=== PATIENT | male | born 1995 | race Caucasian/White ===

== ENCOUNTER 2017-03-06 00:26 | Emergency (ER) | payer SELFPAY ==
[~2017-03-06] VITALS: Ht 182.9 cm; Wt 79.5 kg
[2017-03-06] MEDS ORDERED: DiphenhydrAMINE HCL 25 MG CAPSULE PO ONE (02:00)
[2017-03-06] MEDS ORDERED: PredniSONE 20 MG TABLET PO ONE (02:00)
[2017-03-06 02:14] VITALS: BP 132/78
== END 2017-03-06 02:14 | disposition home or self-care (01) ==
LOC: EMS 00:31
DX: L23.9 Allergic contact dermatitis, unspecified cause (principal); F41.9 Anxiety disorder, unspecified
CPT/HCPCS: 99283; J7512

== ENCOUNTER 2018-01-18 03:31 | Emergency (ER) | payer SELFPAY ==
[~2018-01-18] VITALS: Ht 182.9 cm; Wt 78.0 kg
[2018-01-18] MEDS ORDERED: IBUPROFEN 600 MG TABLET PO ONE (06:15)
[2018-01-18 06:47] VITALS: BP 126/82
== END 2018-01-18 06:58 | disposition home or self-care (01) ==
LOC: EMS 03:32
DX: R07.89 Other chest pain (principal); F17.210 Nicotine dependence, cigarettes, uncomplicated
CPT/HCPCS: 93005; 99284; 99406